=== PATIENT | female | born 1945 | race Caucasian/White ===

== ENCOUNTER → 2018-05-05 | Outpatient (CLI) | payer MEDICARE, OTHER ==
[~2018-05-05] MED LIST: BENTYL10 MG; CALCIUM OYSTER500 MG PO; ESTRACE0.5 MG; FISHOIL; IBUPROFEN 800800 M1 PO; LIPITOR 20 MG T20 M1 PO; OMEPRAZOLE40 MG; PRILOSEC40 MG; ULTRAM 50MG TAB50 MG PO; WELCHOL3.75 GM; Z-PAK; ZESTORETIC 20-1 EAC3 PO
== END ==
LOC: M.RAD 09:30
DX: Z12.31 Encounter for screening mammogram for malignant neoplasm of breast (principal)

== ENCOUNTER 2018-10-21 21:23 | Emergency (ER) | payer MEDICARE, OTHER ==
[~2018-10-21] VITALS: Ht 165.1 cm; Wt 118.8 kg
[2018-10-21] MEDS ORDERED: LIPITOR 20 MG T20 M1 PO (21:34)
[2018-10-21] MEDS ORDERED: BENTYL 20 MG TA20 M1 PO (21:34)
[2018-10-21] MEDS ORDERED: COLESTIPOL HCL1 G1 PO (21:34)
[2018-10-21] MEDS ORDERED: LIORESAL 10 MG10 MG PO (21:34)
[2018-10-21] MEDS ORDERED: PROBIOTIC1 EAC4 PO (21:35)
[2018-10-21] MEDS ORDERED: CARAFATE 1 GM TA1 G1 PO (21:35)
[2018-10-21] MEDS ORDERED: CENTRUM SILVER1 EAC4 PO (21:35)
[2018-10-21] MEDS ORDERED: ZANTAC 150MG T150 MG PO (21:35)
[2018-10-21 23:36] VITALS: BP 128/67
== END 2018-10-21 23:37 | disposition home or self-care (01) ==
LOC: M.ERS 21:23
DX: S09.8XXA Other specified injuries of head, initial encounter (principal); I10 Essential (primary) hypertension; E78.00 Pure hypercholesterolemia, unspecified; M81.0 Age-related osteoporosis without current pathological fracture; Z88.6 Allergy status to analgesic agent; Z90.710 Acquired absence of both cervix and uterus; Z88.5 Allergy status to narcotic agent; Z91.048 Other nonmedicinal substance allergy status; Z88.8 Allergy status to other drugs, medicaments and biological substances; W21.03XA Struck by baseball, initial encounter; Y93.89 Activity, other specified; Y92.89 Other specified places as the place of occurrence of the external cause; Y99.8 Other external cause status

== ENCOUNTER → 2019-01-05 | Outpatient (CLI) | payer MEDICARE, OTHER ==
[~2019-01-05] MED LIST changes: +BENTYL 20 MG TA20 M1 PO; +CARAFATE 1 GM TA1 G1 PO; +CENTRUM SILVER1 EAC4 PO; +COLESTIPOL HCL1 G1 PO; +LIORESAL 10 MG10 MG PO; +PROBIOTIC1 EAC4 PO; +ZANTAC 150MG T150 MG PO
--- NOTE | 2019-01-05 14:46 | 2DMMODE ---
[place] [address] 2 D/M-MODE ECHOCARDIOGRAM Name: KANU HARRIS Room: [facility]#: [id number] Admission: 01/05/19 Attend Phys: Nomi Ramirez, Discharge: Date of : 47 Date of Service: 01/05/19 1445 Report #: [id number] THIS REPORT FOR: //name// APPROVED REPORT Study performed: 01/05/2019 09:22:54 EXAM: Comprehensive 2D, Doppler, and color-flow Echocardiogram Patient Location: Out-Patient BSA: 2.21 HR: 85 bpm BP: 140/70 mmHg Other Information Study Quality: Good Indications Murmur 2D Dimensions IVSd: 11.70 (7-11mm) LVOT Diam: 20.09 (18-24mm) LVDd: 41.45 mm PWd: 10.64 (7-11mm) Ascending Ao: 33.71 (22-36mm) LVDs: 21.00 (25-40mm) Aortic Root: 26.47 mm Volumes Left Atrial Volume (Systole) LA ESV Index: 14.90 mL/m2 Aortic Valve AoV Peak Bay.: 1.87 m/s AO Peak Gr.: 14.03 mmHg LVOT Max P.72 mmHg AO Mean Gr.: 7.87 mmHg LVOT Mean P.36 mmHg LVOT Max V: 0.83 m/s AO V2 VTI: 38.15 cm LVOT Mean V: 0.54 m/s ELICIA (VTI): 1.49 cm2 LVOT V1 VTI: 17.94 cm Mitral Valve E/A Ratio: 0.60 MV Decel. Time: 360.52 ms MV E Max Bay.: 0.45 m/s MV PHT: 104.55 ms MVA (PHT): 2.10 [place]2 [place] [address] 2 D/M-MODE ECHOCARDIOGRAM Name: KANU HARRIS Room: [facility]#: [id number] Admission: 01/05/19 Attend Phys: Nomi Ramirez, Discharge: Date of : 47 Date of Service: 01/05/19 1445 Report #: [id number] TDI E/Lateral E': 6.43 E/Medial E': 5.00 Medial E' Bay.: 0.09 m/s Lateral E' Bay.: 0.07 m/s Pulmonary Valve PV Peak Bay.: 0.92 m/s PV Peak Gr.: 3.36 mmHg Left Ventricle The left ventricle is normal size. There is normal LV segmental wall motion. There is normal left ventricular wall thickness. Left ventricular systolic function is normal. LVEF is 55-60%. Grade I - abnormal relaxation pattern. Right Ventricle The right ventricle is normal size. The right ventricular systolic function is normal. Atria The left atrium size is normal. The right atrium size is normal. Aortic Valve The Aortic valve is sclerotic. No aortic regurgitation is present. Moderate aortic stenosis. Mitral Valve The mitral valve is normal in structure. There is no mitral valve regurgitation noted. No evidence of mitral valve stenosis. Tricuspid Valve The tricuspid valve is normal in structure. There is no tricuspid valve regurgitation noted. Pulmonic Valve The pulmonary valve is normal in structure. There is no pulmonic valvular regurgitation. Great Vessels The aortic root is normal in size. IVC is normal in size and collapses >50% with inspiration. Pericardium There [place] [address] 2 D/M-MODE ECHOCARDIOGRAM Name: KANU HARRIS Room: [facility]#: [id number] Admission: 01/05/19 Attend Phys: Nomi Ramirez, Discharge: Date of : 47 Date of Service: 01/05/19 1445 Report #: [id number] <Conclusion> The left ventricle is normal size. There is normal left ventricular wall thickness. Left ventricular systolic function is normal. LVEF is 55-60%. Grade I - abnormal relaxation pattern. There is normal LV segmental wall motion. The Aortic valve is sclerotic. Moderate aortic stenosis. IVC is normal in size and collapses >50% with inspiration. <ELECTRONICALLY SIGNED> By: Michael Garcia MD, FACC 01/05/19 1445 1445 1445 Michael Garcia MD, FACC /INF
== END ==
LOC: M.CRD 12-23 09:00
DX: I06.0 Rheumatic aortic stenosis (principal)

== ENCOUNTER → 2019-05-06 | Outpatient (CLI) | payer MEDICARE, OTHER | LOC: M.RAD 09:32 | DX: Z12.31 Encounter for screening mammogram for malignant neoplasm of breast (principal) ==

== ENCOUNTER → 2019-07-13 | Outpatient (CLI) | payer MEDICARE, OTHER | LOC: M.RAD 06-24 14:30 | DX: S22.41XA Multiple fractures of ribs, right side, initial encounter for closed fracture (principal); M41.86 Other forms of scoliosis, lumbar region; M41.84 Other forms of scoliosis, thoracic region; J44.9 Chronic obstructive pulmonary disease, unspecified; Z87.39 Personal history of other diseases of the musculoskeletal system and connective tissue; Z78.0 Asymptomatic menopausal state; X58.XXXA Exposure to other specified factors, initial encounter; Y93.89 Activity, other specified; Y92.89 Other specified places as the place of occurrence of the external cause; Y99.8 Other external cause status ==

== ENCOUNTER → 2020-05-08 | Outpatient (CLI) | payer MEDICARE, OTHER | LOC: M.RAD 11:00 | PROVIDERS: ATTEND Internal Medicine | DX: Z12.31 Encounter for screening mammogram for malignant neoplasm of breast (principal) ==

== ENCOUNTER → 2021-05-08 | Outpatient (CLI) | payer MEDICARE, OTHER | LOC: M.RAD 08:33 | PROVIDERS: ATTEND Family Medicine | DX: Z12.31 Encounter for screening mammogram for malignant neoplasm of breast (principal) ==